=== PATIENT | male | born 1955 | race Caucasian/White ===

== ENCOUNTER 2022-11-20 01:35 | Inpatient (IN) | payer OTHER ==
[2022-11-20 02:01] VITALS: BMI 29.2
[2022-11-20 05:03] LABS: BASO % 0.2 % (0-2.0); HEMATOCRIT 44.3 % (35.4-49); HEMOGLOBIN 14.1 GM/dL (11.7-16.9); LYMPH % 7.3 % (8-40); MCH 29.5 pg (25.7-33.7); MCHC 31.9 g/dl (32.0-35.9); MEAN CELL VOLUME 92.4 fl (80-96); MEAN PLT VOLUME 10.8 fl (7.5-11.1); NEUT % 86.5 % (42.8-82.8); PLATELET COUNT 89 10^3/uL (134-434); RBC 4.79 M/mm3 (4.00-5.60); WHITE BLOOD COUNT 15.7 K/mm3 (4.0-10.0)
[2022-11-20 05:09] LABS: INR 1.17 (0.83-1.09); PROTHROMBIN TIME (PATIENT) 13.5 SEC (9.7-13.0)
[2022-11-20 05:12] LABS: ACTIVATED PTT 29.7 SECONDS (25.2-36.5)
[2022-11-20 05:24] LABS: ALBUMIN 3.1 g/dl (3.4-5.0); BLOOD UREA NITROGEN 22.4 mg/dL (7-18); CALCIUM 9.3 mg/dL (8.5-10.1)
[2022-11-20 05:27] LABS: CREATININE 0.9 mg/dL (0.55-1.3)
[2022-11-20 05:29] LABS: BILIRUBIN,TOTAL 1.8 mg/dL (0.2-1); TOT PROT 5.7 g/dl (6.4-8.2)
[2022-11-20 07:29] LABS: N-TERMINAL BNP 142.2 pg/ml (5-125)
[2022-11-20] MEDS ORDERED: AZITHROMYCIN IVPB 500 MG in DEXTROSE 5%-WATER - 250 ML IVPB ONE (07:44)
[2022-11-20] MEDS ORDERED: CEFTRIAXONE 1,000 MG in DEXTROSE 5%-WATER - 50 ML IVPB ONE (07:44)
[2022-11-20 08:16] LABS: EPI CELLS 8 /uL (0-25.1); HYALINE CASTS 57 /uL (0-3.1); PH,URINE 5.5 (5.0-8.0); URINE APPEARANCE CLOUDY; URINE BACTERIA >9,000 /uL (0-1359); URINE BILIRUBIN 1+ (NEGATIVE); URINE COLOR DK YELLOW; URINE GLUCOSE (UA) NEGATIVE (NEGATIVE); URINE KETONE TRACE (NEGATIVE); URINE LEUK ESTERASE 2+ (NEGATIVE); URINE NITRITE POSITIVE (NEGATIVE); URINE PROTEIN 1+ (NEGATIVE); URINE UROBILINOGEN 0.2 mg/dL (0.2-1.0); URINE WBC 818 /uL (0-25.8)
[2022-11-20] MEDS ORDERED: ASPIRIN 81 MG CHEWABLE TABLETS PO ONE (08:25)
[2022-11-20] MEDS ORDERED: CEFTRIAXONE 1 GM/50 ML BAG ONE (08:25)
[2022-11-20 08:44] LABS: URINE RBC 35.9 /uL (0-23.9)
[2022-11-20] MEDS ORDERED: ASPIRIN 81 MG CHEWABLE TABLETS ONE (08:56)
[2022-11-20] MEDS ORDERED: CEFTRIAXONE 1 GM in DEXTROSE 5%-WATER - 50 ML IVPB SCH (10:00)
[2022-11-20] MEDS ORDERED: HEPARIN NA (PORCINE) 5,000 UNITS/ML 1ML VIAL ONE ×2 (10:41→22:06)
[2022-11-20] MEDS ORDERED: POLYETHYLENE GLYCOL (HEALTHYLAX) 3350 17 GM PACKET ONE (10:41)
[2022-11-20] MEDS ORDERED: ATENOLOL 50 MG TABLET (FP) ONE (10:41)
[2022-11-20] MEDS: HEPARIN NA (PORCINE) 5,000 UNITS/ML 1ML VIAL SQ SCH ×2 (10:57→22:36)
[2022-11-20] MEDS: POLYETHYLENE GLYCOL (HEALTHYLAX) 3350 17 GM PACKET PO SCH (10:57)
[2022-11-20] MEDS: ATENOLOL 50 MG TABLET (FP) PO SCH (10:58)
[2022-11-20 15:45] LABS: ANISOCYTOSIS 0; HELMET CELLS 0; HOWELL-JOLLY BODIES 0; MACROCYTOSIS 0; OVALOCYTE 0; ROULEAU 0; SICKELED CELLS 0; TARGET CELLS 0; TEAR DROP CELLS 0; TOXIC GRANULATION 0
[2022-11-20] MEDS ORDERED: CYCLOBENZAPRINE HCL 10 MG TABLET (FP) ONE (22:06)
[2022-11-20] MEDS: CYCLOBENZAPRINE HCL 10 MG TABLET (FP) PO SCH (22:36)
[2022-11-21] MEDS ORDERED: ACETAMINOPHEN 325 MG TABLET (FP) PO ONE (00:49)
[2022-11-21 08:25] LABS: BASO % 0.3 % (0-2.0); EOS % 0.1 % (0-4.5); HEMATOCRIT 44.5 % (35.4-49); HEMOGLOBIN 14.1 GM/dL (11.7-16.9); LYMPH % 10.4 % (8-40); MCH 29.7 pg (25.7-33.7); MCHC 31.7 g/dl (32.0-35.9); MEAN CELL VOLUME 93.7 fl (80-96); MEAN PLT VOLUME 11.9 fl (7.5-11.1); MONO % 6.5 % (3.8-10.2); NEUT % 82.7 % (42.8-82.8); PLATELET COUNT 75 10^3/uL (134-434); RBC 4.75 M/mm3 (4.00-5.60); RDW 14.4 % (11.9-15.9); WHITE BLOOD COUNT 15.2 K/mm3 (4.0-10.0)
[2022-11-21 08:55] LABS: CALCIUM 9.8 mg/dL (8.5-10.1)
[2022-11-21 08:56] LABS: ALBUMIN 2.7 g/dl (3.4-5.0); BLOOD UREA NITROGEN 25.3 mg/dL (7-18)
[2022-11-21 08:59] LABS: CREATININE 1.1 mg/dL (0.55-1.3)
[2022-11-21 09:01] LABS: BILIRUBIN,DIRECT 0.4 mg/dL (0.0-0.2); BILIRUBIN,TOTAL 1.6 mg/dL (0.2-1); TOT PROT 5.4 g/dl (6.4-8.2)
[2022-11-21] MEDS ORDERED: PIPERACILLIN/TAZOB 3.375 GM 3.375 GM in DEXTROSE 5%-WATER - 50 ML IVPB SCH (10:00)
[2022-11-21] MEDS: ATENOLOL 50 MG TABLET (FP) PO SCH ×2 (11:00→11:04)
[2022-11-21] MEDS: HEPARIN NA (PORCINE) 5,000 UNITS/ML 1ML VIAL SQ SCH ×2 (11:00→22:01)
[2022-11-21] MEDS: POLYETHYLENE GLYCOL (HEALTHYLAX) 3350 17 GM PACKET PO SCH (11:00)
[2022-11-21] MEDS: D5-1/2NS+20 MEQ KCL - 20 MEQ/1,000 ML INFUS.BAG IV SCH (13:20)
[2022-11-21] MEDS: PIPERACILLIN/TAZOB 3.375 GM 3.375 GM in DEXTROSE 5%-WATER - 50 ML IVPB SCH (18:09)
[2022-11-21] MEDS: CYCLOBENZAPRINE HCL 10 MG TABLET (FP) PO SCH (22:01)
[2022-11-22] MEDS: PIPERACILLIN/TAZOB 3.375 GM 3.375 GM in DEXTROSE 5%-WATER - 50 ML IVPB SCH ×3 (02:25→18:45)
[2022-11-22 08:36] LABS: BASO % 0.1 % (0-2.0); EOS % 0.9 % (0-4.5); HEMATOCRIT 42.5 % (35.4-49); HEMOGLOBIN 13.6 GM/dL (11.7-16.9); LYMPH % 13.6 % (8-40); MCH 29.5 pg (25.7-33.7); MEAN CELL VOLUME 92.3 fl (80-96); MEAN PLT VOLUME 11.1 fl (7.5-11.1); MONO % 5.5 % (3.8-10.2); NEUT % 79.9 % (42.8-82.8); PLATELET COUNT 67 10^3/uL (134-434); RBC 4.61 M/mm3 (4.00-5.60); RDW 14.3 % (11.9-15.9); WHITE BLOOD COUNT 8.4 K/mm3 (4.0-10.0)
[2022-11-22 08:50] LABS: CALCIUM 9.3 mg/dL (8.5-10.1)
[2022-11-22 08:51] LABS: ALBUMIN 2.5 g/dl (3.4-5.0); BLOOD UREA NITROGEN 17.6 mg/dL (7-18)
[2022-11-22 08:54] LABS: CREATININE 0.9 mg/dL (0.55-1.3)
[2022-11-22 08:55] LABS: TOT PROT 5.2 g/dl (6.4-8.2)
[2022-11-22] MEDS ORDERED: TAMSULOSIN HCL 0.4 MG CAP PO ONE (08:56)
[2022-11-22] MEDS ORDERED: ACETAMINOPHEN 325 MG TABLET (FP) PO PRN (10:10)
[2022-11-22] MEDS: ATENOLOL 50 MG TABLET (FP) PO SCH (10:15)
[2022-11-22] MEDS: POLYETHYLENE GLYCOL (HEALTHYLAX) 3350 17 GM PACKET PO SCH (10:15)
[2022-11-22] MEDS: HEPARIN NA (PORCINE) 5,000 UNITS/ML 1ML VIAL SQ SCH ×2 (10:15→21:06)
[2022-11-22] MEDS: D5-1/2NS+20 MEQ KCL - 20 MEQ/1,000 ML INFUS.BAG IV SCH ×2 (10:16→23:50)
[2022-11-22] MEDS: CYCLOBENZAPRINE HCL 10 MG TABLET (FP) PO SCH (21:06)
[2022-11-23 00:05] LABS: MAGNESIUM 1.6 mg/dL (1.8-2.4)
[2022-11-23] MEDS: PIPERACILLIN/TAZOB 3.375 GM 3.375 GM in DEXTROSE 5%-WATER - 50 ML IVPB SCH ×3 (01:11→17:18)
[2022-11-23 07:45] LABS: BASO % 0.4 % (0-2.0); EOS % 0.9 % (0-4.5); HEMATOCRIT 41.7 % (35.4-49); HEMOGLOBIN 13.4 GM/dL (11.7-16.9); LYMPH % 17.8 % (8-40); MCH 29.8 pg (25.7-33.7); MCHC 32.2 g/dl (32.0-35.9); MEAN CELL VOLUME 92.4 fl (80-96); MEAN PLT VOLUME 10.6 fl (7.5-11.1); MONO % 8.3 % (3.8-10.2); NEUT % 72.6 % (42.8-82.8); PLATELET COUNT 78 10^3/uL (134-434); RBC 4.51 M/mm3 (4.00-5.60); RDW 14.1 % (11.9-15.9)
[2022-11-23 08:04] LABS: CALCIUM 9.2 mg/dL (8.5-10.1)
[2022-11-23 08:05] LABS: ALBUMIN 2.4 g/dl (3.4-5.0); BLOOD UREA NITROGEN 11.4 mg/dL (7-18)
[2022-11-23 08:08] LABS: CREATININE 0.9 mg/dL (0.55-1.3)
[2022-11-23 08:10] LABS: BILIRUBIN,TOTAL 1.4 mg/dL (0.2-1); TOT PROT 5.3 g/dl (6.4-8.2)
[2022-11-23] MEDS: HEPARIN NA (PORCINE) 5,000 UNITS/ML 1ML VIAL SQ SCH ×2 (11:05→21:39)
[2022-11-23] MEDS: POLYETHYLENE GLYCOL (HEALTHYLAX) 3350 17 GM PACKET PO SCH (11:05)
[2022-11-23] MEDS: TAMSULOSIN HCL 0.4 MG CAP PO SCH (11:06)
[2022-11-23] MEDS: ATENOLOL 50 MG TABLET (FP) PO SCH (11:06)
[2022-11-23] MEDS: D5-1/2NS+20 MEQ KCL - 20 MEQ/1,000 ML INFUS.BAG IV SCH (17:42)
[2022-11-23] MEDS: CYCLOBENZAPRINE HCL 10 MG TABLET (FP) PO SCH (21:38)
[2022-11-23] MEDS ORDERED: ROSUVASTATIN CA 5 MG TABLET PO SCH (22:00)
[2022-11-24] MEDS: PIPERACILLIN/TAZOB 3.375 GM 3.375 GM in DEXTROSE 5%-WATER - 50 ML IVPB SCH ×2 (01:05→09:16)
[2022-11-24 05:53] VITALS: RESP 18
[2022-11-24 08:54] LABS: HEMATOCRIT 43.9 % (35.4-49); HEMOGLOBIN 14.4 GM/dL (11.7-16.9); MCH 30.3 pg (25.7-33.7); MCHC 32.7 g/dl (32.0-35.9); MEAN CELL VOLUME 92.5 fl (80-96); MEAN PLT VOLUME 10.6 fl (7.5-11.1); PLATELET COUNT 101 10^3/uL (134-434); RBC 4.75 M/mm3 (4.00-5.60); RDW 14.4 % (11.9-15.9); WHITE BLOOD COUNT 8.4 K/mm3 (4.0-10.0)
[2022-11-24] MEDS: POLYETHYLENE GLYCOL (HEALTHYLAX) 3350 17 GM PACKET PO SCH ×2 (09:16→09:26)
[2022-11-24] MEDS: D5-1/2NS+20 MEQ KCL - 20 MEQ/1,000 ML INFUS.BAG IV SCH (09:16)
[2022-11-24] MEDS: TAMSULOSIN HCL 0.4 MG CAP PO SCH (09:16)
[2022-11-24] MEDS: ATENOLOL 50 MG TABLET (FP) PO SCH (09:16)
[2022-11-24] MEDS: HEPARIN NA (PORCINE) 5,000 UNITS/ML 1ML VIAL SQ SCH (09:16)
[2022-11-24 09:53] VITALS: BP 133/98; PULSE 60; TEMP 98.4
[2022-11-24 10:17] LABS: ANISOCYTOSIS 0; HELMET CELLS 0; HOWELL-JOLLY BODIES 0; MACROCYTOSIS 0; OVALOCYTE 0; ROULEAU 0; SICKELED CELLS 0; TARGET CELLS 0; TEAR DROP CELLS 0; TOXIC GRANULATION 0
== END 2022-11-24 13:56 | disposition home health service (06) | DRG 690 ==
LOC: JER 01:35 → JERBED 06:22 → OBSVTOIN 09:55 → J4W 23:26
PROVIDERS: ADMIT Family Medicine; ATTEND Family Medicine
DX: N39.0 Urinary tract infection, site not specified (principal); B96.1 Klebsiella pneumoniae [K. pneumoniae] as the cause of diseases classified elsewhere; I10 Essential (primary) hypertension; R07.89 Other chest pain; Z96.651 Presence of right artificial knee joint; Z96.642 Presence of left artificial hip joint; D69.6 Thrombocytopenia, unspecified; N40.0 Benign prostatic hyperplasia without lower urinary tract symptoms; R31.9 Hematuria, unspecified; R50.9 Fever, unspecified
CPT/HCPCS: 0241U-QW; 36415; 71045-TC-FY; 71250-TC; 76700-TC; 76856-TC; 80053; 80061; 81003; 82248; 83010; 83036; 83615; 83735; 83880; 84443; 84484; 85025; 85379; 85610; 85730; 87040; 87086; 87186; 93005; 93010; 93306-TC; 97116-GP; 97162-GP; 99285-25; G0378; J1644

== ENCOUNTER 2023-03-28 04:04 | Day surgery (SDC) | payer OTHER ==
[2023-03-24 11:35] VITALS: BMI 29.1
[2023-03-28] MEDS ORDERED: oxyCODONE HCL 5 MG TABLET PO PRN (17:17)
[2023-03-28] MEDS ORDERED: ONDANSETRON 4 MG/2 ML VIAL IVPUSH PRN (17:17)
[2023-03-28] MEDS ORDERED: PROMETHAZINE HCL 25 MG/1 ML VIAL IVPB PRN (17:17)
[2023-03-28] MEDS ORDERED: ONDANSETRON 4 MG/2 ML VIAL ONE (17:27)
[2023-03-28] MEDS ORDERED: DEXAMETHASONE SOD PHOSPHATE 4 MG/1 ML VIAL ONE (17:27)
[2023-03-28] MEDS ORDERED: PROPOFOL 20 ML ONE (17:27)
[2023-03-28] MEDS ORDERED: LIDOCAINE HCL/PF 2% SDV 5ML VIAL ONE (17:27)
[2023-03-28] MEDS ORDERED: LACTATED RINGERS SOLUTION 1,000 ML IV SCH ×2 (17:30→18:30)
[2023-03-28] MEDS ORDERED: ceFAZolin SODIUM 1 GM VIAL ONE (17:41)
[2023-03-28] MEDS ORDERED: LIDOCAINE HCL 2% JELLY (30 ML/TUBE) TP ONE (17:52)
[2023-03-28] MEDS ORDERED: KETOROLAC TROMETHAMINE 30 MG/1 ML VIAL ONE (18:03)
[2023-03-28] MEDS ORDERED: ACETAMINOPHEN 1000 MG/100 ML BAG IVPB ONE (18:22)
[2023-03-28 20:07] VITALS: RESP 18
[2023-03-28 20:14] VITALS: BP 162/82; PULSE 71; TEMP 98.3
== END 2023-03-28 20:00 | disposition home or self-care (01) ==
LOC: JASU-SURG 04:04
PROVIDERS: ATTEND Urology
PROC: 0T7D8ZZ Dilation of Urethra, Via Natural or Artificial Opening Endoscopic (ICD-10-PCS; principal; 2023-03-28 15:00)
PROC: 0VT08ZZ Resection of Prostate, Via Natural or Artificial Opening Endoscopic (ICD-10-PCS; 2023-03-28 15:00)
PROC: 0TND8ZZ Release Urethra, Via Natural or Artificial Opening Endoscopic (ICD-10-PCS; 2023-03-28 15:00)
DX: N35.916 Unspecified urethral stricture, male, overlapping sites (principal); N40.0 Benign prostatic hyperplasia without lower urinary tract symptoms
CPT/HCPCS: 88305-TC; 94760

== ENCOUNTER 2024-10-07 18:09 | Emergency (ER) | payer OTHER ==
[2024-10-07 18:19] VITALS: BMI 29.7
[2024-10-07] MEDS ORDERED: FAMOTIDINE 20 MG/50 ML IVPB 20 MG/50 ML MG IVPB ONE (19:14)
[2024-10-07] MEDS ORDERED: ACETAMINOPHEN INJECTION 100 ML ONE (19:30)
[2024-10-07] MEDS ORDERED: MAG HYDROX/AL HYDROX/SIMETH 30 ML UNIT-DOSE CUP ONE (19:30)
[2024-10-07] MEDS: MAG HYDROX/AL HYDROX/SIMETH 30 ML UNIT-DOSE CUP PO ONE (19:40)
[2024-10-07] MEDS: ACETAMINOPHEN 1000 MG/100 ML BAG IVPB ONE (19:42)
[2024-10-07 19:55] LABS: BASO % 0.4 % (0-2.0); HEMATOCRIT 47.7 % (35.4-49); HEMOGLOBIN 15.3 GM/dL (11.7-16.9); LYMPH % 49.6 % (8-40); MCH 29.7 pg (25.7-33.7); MCHC 32.2 g/dl (32.0-35.9); MEAN CELL VOLUME 92.1 fl (80-96); MEAN PLT VOLUME 10.8 fl (7.5-11.1); MONO % 4.1 % (3.8-10.2); NEUT % 43.9 % (42.8-82.8); PLATELET COUNT 88 10^3/uL (134-434); RBC 5.17 M/mm3 (4.00-5.60); RDW 13.7 % (11.9-15.9); WHITE BLOOD COUNT 8.2 K/mm3 (4.0-10.0)
[2024-10-07 20:06] LABS: INR 0.97 (0.83-1.09); PROTHROMBIN TIME (PATIENT) 11.2 SEC (9.7-13.0)
[2024-10-07 20:09] LABS: ACTIVATED PTT 31.4 SECONDS (25.2-36.5)
[2024-10-07] MEDS ORDERED: ALBUTEROL SO4 HFA INHALER IH ONE (20:15)
[2024-10-07] MEDS: ALBUTEROL SO4 HFA INHALER IH ONE (20:18)
[2024-10-07 20:26] LABS: POTASSIUM 3.9 mmol/L (3.5-5.1)
[2024-10-07 20:28] LABS: CALCIUM 9.6 mg/dL (8.5-10.1)
[2024-10-07 20:29] LABS: ALBUMIN 3.1 g/dl (3.4-5.0); MAGNESIUM 1.9 mg/dL (1.8-2.4)
[2024-10-07 20:32] LABS: CREATININE 1.2 mg/dL (0.55-1.3)
[2024-10-07 20:33] LABS: BILIRUBIN,TOTAL 0.6 mg/dL (0.2-1); TOT PROT 6.2 g/dl (6.4-8.2)
[2024-10-07 21:04] VITALS: BP 118/65; PULSE 91; RESP 16; TEMP 97.7
== END 2024-10-07 21:00 | disposition home or self-care (01) ==
LOC: JER 18:09
PROC: 3E033NZ Introduction of Analgesics, Hypnotics, Sedatives into Peripheral Vein, Percutaneous Approach (ICD-10-PCS; principal; 2024-10-07)
DX: J10.1 Influenza due to other identified influenza virus with other respiratory manifestations (principal); R05.9 Cough, unspecified; R06.02 Shortness of breath; R10.12 Left upper quadrant pain; R09.81 Nasal congestion
CPT/HCPCS: 0241U-QW; 36415; 71046-TC-FY; 80053; 83690; 83735; 84484; 85025; 85610; 85730; 93005; 93010; 96374; 99285-25; J0131